=== PATIENT | female | born 1970 | race Caucasian/White ===

== ENCOUNTER 2021-01-11 15:52 | Emergency (ER) | payer OTHER ==
[2021-01-11 19:30] LABS: BASOPHIL 0.2 % (0-2); EOSINOPHIL 1.1 % (0-5); HCT 41.9 % (37.0-47.0); HGB 13.5 g/dl (12.5-16.0); LYMPHOCYTE 39.3 % (15-48); MCH 30.4 pg (25.0-31.0); MCHC 32.2 g/dL (32.0-36.0); MCV 94.4 fL (78.0-100.0); MONOCYTE 7.2 % (0-12); MPV 9.4 fL (6.0-9.5); NEUTROPHIL 51.9 % (41-80); NRBC 0; PLT 291 K/uL (150-400); RBC 4.44 M/uL (4.20-5.40); RDW 13.7 % (11.5-14.0); WBC 6.1 K/uL (4.0-10.5)
[2021-01-11 19:47] LABS: ALBUMIN 3.7 g/dL (3.4-5.0); BILIRUBIN - TOTAL 0.4 mg/dL (0.2-1.0); BUN/CREAT RATIO (CALC) 11.2 RATIO; CREATININE 0.8 mg/dL (0.51-0.95); TOTAL PROTEIN 7.7 g/dL (6.4-8.2)
== END 2021-01-11 21:55 | disposition home or self-care (01) ==
LOC: FER 15:52
PROVIDERS: Emergency Medicine
DX: R07.89 Other chest pain (principal); F17.200 Nicotine dependence, unspecified, uncomplicated
CPT/HCPCS: 36415; 71250; 71275; 80053; 85025; 85379; Q9967